=== PATIENT | male | born 1995 | race Caucasian/White ===

== ENCOUNTER 2016-12-08 19:16 | Emergency (ER) | payer OTHER ==
--- NOTE | 2016-12-08 20:27 | RAD ---
INDICATION: Right shoulder pain COMPARISON: None TECHNIQUE: AP, lateral, and oblique views were obtained. FINDINGS: There is no acute bony change. There is a Hill-Sachs deformity. The shoulder articulates normally. IMPRESSION: NO ACUTE BONY FINDINGS.
--- NOTE | 2016-12-08 21:22 | ED ---
Upper Extremity Pain - HPI Summary HPI Summary: Pt here w/ Rt shoulder dislocation earlier tonight. Walked into his room with the lights out - reached out to turn the lights on and tripped and fell. [place] his shoulder pop out of place then pop bback in. Denies h/o dislocation here. Has been icing and currently minimal pain - has some soreness over top of shoulder. Denies numbness, tingling, weakness. Moving entire UE well. Denies other injuries as a result of fall, including head injury. - History of Current Complaint Chief Complaint: EDExtremityUpper Stated Complaint: RT SHOULDER INJURY Time Seen by Provider: 12/08/16 19:51 Hx Obtained From: Patient - Allergies/Home Medications Allergies/Adverse Reactions: Allergies Allergy/AdvReac Type Severity Reaction Status Date / Time No Known Allergies Allergy Verified 12/08/16 19:43 PMH/Surg Hx/FS Hx/Imm Hx Previously Healthy: Yes Endocrine/Hematology History: Denies: Hx Anticoagulant Therapy, Hx Blood Disorders - Immunization History Immunizations Up to Date: Yes Infectious Disease History: No Infectious Disease History: Denies: History Other Infectious Disease, Traveled Outside the [place] in Last 30 Days - Family History Known Family History: Positive: None - Social History Occupation: Student Lives: Dormitory/Roommates Alcohol Use: Weekly Hx Substance Use: Yes Substance Use Type: Reports: Marijuana - recreationally Hx Tobacco Use: Yes Smoking Status (MU): Current Some Day Smoker - socially at times Review of Systems Constitutional: Negative Negative: Fatigue Eyes: Negative Negative: Photophobia, Blurred Vision, Diplopia ENT: Negative Negative: Epistaxis, Dental Pain, Sore Throat Cardiovascular: Negative Negative: Chest Pain Respiratory: Negative Negative: Shortness Of Breath Gastrointestinal: Negative Negative: Abdominal Pain, Vomiting, Nausea Positive: no symptoms reported Musculoskeletal: Other - see HPI Skin: Negative Neurological: Negative Psychological: Normal All Other Systems Reviewed And Are Negative: Yes Physical Exam Triage Information Reviewed: Yes Vital Signs On Initial Exam: Initial Vitals Temp Pulse Resp BP Pulse Ox 98.7 F 64 16 123/51 96 12/08/16 19:40 12/08/16 19:40 12/08/16 19:40 12/08/16 19:40 12/08/16 19:40 Vital Signs Reviewed: Yes Appearance: Positive: Well-Appearing, No Pain Distress, Well-Nourished Skin: Positive: Warm, Dry - no erythema, no ecchymosis over affected area Head/Face: Positive: Normal Head/Face Inspection Eyes: Positive: Normal, EOMI, LARA ENT: Positive: Normal ENT inspection, Hearing grossly normal, Pharynx normal - mucosa moist - no signs of trauma. Negative: Nasal drainage Dental: Negative: Dental Fracture @ Neck: Positive: Supple, Nontender Respiratory/Lung Sounds: Positive: Breath Sounds Present. Negative: Subcutaneous Emphysema, Tracheal Deviation Cardiovascular: Positive: Normal - chest NTTP, Pulses are Symmetrical in both Upper and Lower Extremities Abdomen Description: Positive: Nontender, Soft Bowel Sounds: Positive: Present Musculoskeletal: Positive: Strength/ROM Intact, Pain @ - superior aspect of shoulder w/ TTP, some soft tissue, some bony areas; no gross deformity Neurological: Positive: Normal, Sensory/Motor Intact, Alert, Oriented to Person Place, Time, CN Intact II-III Psychiatric: Positive: Normal - [place]ell Coma Scale Coma Scale Total: 15 Diagnostics - Vital Signs Vital Signs Temp Pulse Resp BP Pulse Ox 12/08/16 19:40 98.7 F 64 16 123/51 96 - Laboratory Lab Statement: Any lab studies that have been ordered have been reviewed, and results considered in the medical decision making process. Course/Dx - Course Course Of Treatment: XR ordered and report by radiology reviewed as neg findings. 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 Pt agrees w/ plan. - Diagnoses Provider Diagnoses: Sprain of right shoulder Discharge - Discharge Plan Condition: Stable Disposition: HOME Patient Education Materials: Shoulder Sprain (ED) Forms: *Physical Education Release Referrals: [facility] [Outside] Marissa Mart MD [Medical Doctor] - Additional Instructions: Rest, ice, and remain in immobilizer until seen by PCP this week. It is suspected you dislocated your shoulder tonight - do not proceed to regular activity until cleared by PCP or clerical support specialist. A referral has been made here for you. Call tomorrow to schedule an appointment. You may take ibuprofen with food for pain as well. *If you develop numbness, tingling, weakness, change in color of hand, return to ED
[2016-12-08 22:03] VITALS: BP 120/62
== END 2016-12-08 22:02 | disposition home or self-care (01) ==
LOC: ED 19:16
DX: S43.401A Unspecified sprain of right shoulder joint, initial encounter (principal); W01.0XXA Fall on same level from slipping, tripping and stumbling without subsequent striking against object, initial encounter; Y93.9 Activity, unspecified; Y92.9 Unspecified place or not applicable; Z72.0 Tobacco use
CPT/HCPCS: 99282